=== PATIENT | male | born 1980 | race Caucasian/White ===

== ENCOUNTER → 2019-11-18 | Outpatient (CLI) | payer OTHER | END | disposition home or self-care (01) | LOC: STAR 15:34 | PROVIDERS: ATTEND Orthopaedic Surgery | DX: Z01.818 Encounter for other preprocedural examination (principal); Z11.59 Encounter for screening for other viral diseases | CPT/HCPCS: 36415; 87635 ==

== ENCOUNTER 2019-11-23 10:02 | Day surgery (SDC) | payer OTHER ==
[~2019-11-23] VITALS: Ht 180.3 cm; Wt 98.6 kg
[~2019-11-23 10:02] MED LIST: BUPIVACAINE/PF 0.25% ONE; EPINEPHRINE 1 MG/ML, 1ML ONE; ROPIvacaine/PF 0.5%, 30 ML ONE
[2019-11-23] MEDS ORDERED: LIDOCAINE/PF 1%-EPI 1:200K, 30 ML ONE (10:23)
[2019-11-23 10:32] VITALS: BP 122/79
[2019-11-23] MEDS ORDERED: LACTATED RINGERS 1,000 ML IV SCH (10:37)
[2019-11-23] MEDS ORDERED: NO MEDS PER PT (10:39)
[2019-11-23] MEDS ORDERED: CHLORHEXIDINE 15 ML UDC MM ONE (11:00)
[2019-11-23] MEDS ORDERED: FENTANYL PF 100 MCG/2ML ONE ×3 (11:10→12:43)
[2019-11-23] MEDS ORDERED: MIDAZOLAM 1 MG/ML, 2ML ONE (11:10)
[2019-11-23] MEDS ORDERED: hydrALAzine 20 MG/ML, 1ML IV PRN (11:30)
[2019-11-23] MEDS ORDERED: LABETALOL 5MG/ML, 20ML IV PRN (11:30)
[2019-11-23] MEDS ORDERED: LORazepam 2 MG/ML, 1ML IVPush PRN (11:30)
[2019-11-23] MEDS ORDERED: ACETAMINOPHEN 325 MG TABLET PO PRN (11:30)
[2019-11-23] MEDS ORDERED: OXYcodone 5 MG/5 ML ORAL.SOL UDC PO PRN (11:30)
[2019-11-23] MEDS ORDERED: HYDROmorphone 1 MG/ML, 1ML INJ IVPush PRN (11:30)
[2019-11-23] MEDS ORDERED: PROMETHAZINE 25 MG/ML, 1ML IVPush PRN (11:30)
[2019-11-23] MEDS ORDERED: ALBUTEROL SULFATE 2.5 MG/3 ML NPPB PRN (11:30)
[2019-11-23] MEDS ORDERED: CEFAZOLIN 1,000 MG ONE (11:51)
[2019-11-23] MEDS ORDERED: DEXAMETHASONE 4 MG/ML, 1ML ONE (11:51)
[2019-11-23] MEDS ORDERED: LIDOCAINE-MPF 2% ,5ML ONE (11:51)
[2019-11-23] MEDS ORDERED: ONDANSETRON 2MG/ML, 2ML ONE (11:51)
[2019-11-23] MEDS ORDERED: KETOROLAC 30 MG/1 ML ONE (11:51)
[2019-11-23] MEDS ORDERED: PROPOFOL 10 MG/ML, 20ML ONE (11:51)
[2019-11-23] MEDS ORDERED: ROPIvacaine/PF 0.5%, 30 ML INFIL ONE (11:56)
[2019-11-23] MEDS ORDERED: LIDOCAINE 1%-EPI 1:100K, 30ML INFIL ONE (11:57)
[2019-11-23] MEDS ORDERED: ACETAMINOPHEN 650 MG/20.3 ML UDC ONE (12:38)
[2019-11-23] MEDS ORDERED: ACETAMINOPHEN 325 MG TABLET ONE (12:38)
[2019-11-23] MEDS ORDERED: OXYcodone 5 MG/5 ML ORAL.SOL UDC ONE (12:38)
[2019-11-23] MEDS: FENTANYL PF 100 MCG/2ML IV PRN ×2 (12:45→13:00)
== END 2019-11-23 14:15 | disposition home or self-care (01) ==
LOC: OUT 10:02
PROVIDERS: ATTEND Orthopaedic Surgery
DX: S83.232A Complex tear of medial meniscus, current injury, left knee, initial encounter (principal); M94.262 Chondromalacia, left knee; Z88.8 Allergy status to other drugs, medicaments and biological substances; X58.XXXA Exposure to other specified factors, initial encounter; Y93.89 Activity, other specified; Y92.89 Other specified places as the place of occurrence of the external cause; Y99.8 Other external cause status
CPT/HCPCS: 29881; J0690; J1100; J1885; J2250; J2405; J2704; J2795; J3010; J3490; J7120; J0171